=== PATIENT | female | born 1980 | race Two or more races ===

== ENCOUNTER 2020-07-13 14:11 | Inpatient (IN) | payer OTHER ==
[~2020-07-13] VITALS: Ht 160 cm; Wt 57.2 kg
[2020-07-13] MEDS ORDERED: SODIUM CHLORIDE 0.9% 1,000 ML IV ONE (14:57)
[2020-07-13] MEDS ORDERED: ACETAMINOPHEN 325MG TABLET PO STA (14:57)
[2020-07-13 15:55] LABS: CLARITY URINE CLEAR (CLEAR); COLOR URINE YELLOW (YELLOW); KETONES URINE NEGATIVE (NEGATIVE); LEUKOCYTE ESTERASE URINE NEGATIVE (NEGATIVE); NITRITE URINE NEGATIVE (NEGATIVE); OCCULT BLOOD URINE NEGATIVE (NEGATIVE); PROTEIN URINE NEGATIVE (NEGATIVE); SPECIFIC GRAVITY URINE 1.011 (1.005-1.030); UROBILINOGEN URINE 0.2 E.U./dL (0.2-1.0)
[2020-07-13 16:24] LABS: EOSINOPHILS % 0.9 % (0.0-5.0); HEMATOCRIT. 33.4 % (36.0-48.0); HEMOGLOBIN. 11.2 g/dL (12.0-16.0); LYMPHOCYTES % 22.7 % (20.0-50.0); MEAN CORPUSCULAR HEMOGLOBIN 31.5 pg (28.0-32.0); MEAN CORPUSCULAR VOLUME 93.7 fL (81.0-99.0); MEAN PLATELET VOLUME 8.1 fl (7.4-10.4); MONOCYTES % 6.1 % (2.0-8.0); NEUTROPHILS % 69.3 % (40.0-76.0); PLATELET 222 x1000/uL (130-400); RED BLOOD CELL COUNT 3.56 mill/uL (4.2-5.4); RED CELL DISTRIBUTION WIDTH 13.2 % (11.6-14.6)
[2020-07-13] MEDS ORDERED: LEVETIRACETAM 1000MG/100ML 100 ML IV ONE (16:30)
[2020-07-13 16:31] LABS: INR 1.1; PROTHROMBIN TIME 11.7 sec (9.6-11.0)
[2020-07-13 16:32] LABS: HCG SCREEN NEGATIVE
[2020-07-13 16:34] LABS: CHLORIDE 104 mEq/L (98-107)
[2020-07-13 16:41] LABS: CREATINE KINASE 70 IU/L (26-192)
[2020-07-13 16:45] LABS: CREATINE KINASE MB FRACTION < 1.0 ng/mL (0.5-3.6)
[2020-07-13 16:47] LABS: CARBAMAZEPINE 17.3 ug/mL (4-12)
[2020-07-13] MEDS ORDERED: NA PHOS,M-B/NA PHOS,DI-BA ENEMA 118ML PR PRN (17:30)
[2020-07-13] MEDS ORDERED: DOCUSATE SODIUM 100MG CAPSULE PO PRN (17:30)
[2020-07-13] MEDS ORDERED: GUAIFENESIN 200MG/10ML SUGAR FREE UDC PO PRN (17:30)
[2020-07-13] MEDS ORDERED: ONDANSETRON HCL 4MG/2ML INJ IV PRN (17:30)
[2020-07-13] MEDS ORDERED: MAGNESIUM/ALUMINUM HYDROXIDE/SIMETHICONE 30ML UDC PO PRN (17:30)
[2020-07-13] MEDS ORDERED: LORAZEPAM 0.5MG TABLET PO PRN (17:30)
[2020-07-13] MEDS ORDERED: ACETAMINOPHEN 325MG TABLET PO PRN (17:30)
[2020-07-13] MEDS ORDERED: ACETAMINOPHEN 650MG SUPP PR PRN (17:30)
[2020-07-13] MEDS ORDERED: CLONIDINE 0.1MG TABLET PO PRN (17:30)
[2020-07-13] MEDS ORDERED: DIPHENHYDRAMINE 50MG/ML VIAL IV PRN (17:30)
[2020-07-13] MEDS ORDERED: LEVETIRACETAM 500 MG in SODIUM CHLORIDE 0.9% 100 ML IV SCH (17:30)
[2020-07-13] MEDS ORDERED: HYDROCODONE/ACETAMINOPHEN 5/325MG TABLET PO PRN (17:30)
[2020-07-13] MEDS ORDERED: MORPHINE SULFATE 2 MG/ML CPJ (NOT FOR IM USE) IV PRN (17:30)
[2020-07-13] MEDS: FAMOTIDINE 20MG/2ML VIAL IV SCH (18:17)
[2020-07-13] MEDS: DEXT 5%/0.45% NACL 1000ML 1,000 ML IV SCH (18:27)
[2020-07-13] MEDS ORDERED: CEFTRIAXONE 1 G PREMIX 50 ML IV SCH (18:30)
[2020-07-13] MEDS ORDERED: KCL 20MEQ/100ML PREMIX 100 ML IV NR (18:30)
[2020-07-13 18:31] LABS: *AMPHETAMINES SCREEN URINE NEGATIVE (NEGATIVE); *BARBITURATES SCREEN URINE NEGATIVE (NEGATIVE); *BENZODIAZEPINES SCREEN URINE NEGATIVE (NEGATIVE); *COCAINE SCREEN URINE NEGATIVE (NEGATIVE); METHADONE URINE SCREEN NEGATIVE (NEGATIVE); OPIATES URINE SCREEN NEGATIVE (NEGATIVE)
[2020-07-13 18:32] LABS: CANNABINOID URINE SCREEN NEGATIVE (NEGATIVE); PHENCYCLIDINE URINE SCREEN NEGATIVE (NEGATIVE)
[2020-07-13] MEDS ORDERED: AZITHROMYCIN 500 MG in DEXT 5% WATER 250 ML IV SCH (19:00)
[2020-07-13 19:24] LABS: BG CARBOXYHEMOGLOBIN 0.2 % (0.5-1.5); BG DEOXYHEMOGLOBIN 2.5 % (0.0-5.0); BG FRACTION INSPIRED OXYGEN 21; BG HCO3 ACT 24.7 mmol/L (22.0-26.0); BG METHEMOGLOBIN 0.2 % (0.0-1.5); BG OXYGEN SATURATION 97.5 % (92.0-98.5); BG OXYHEMOGLOBIN 97.1 % (94.0-97.0); BG PCO2 40.1 mmHg (35.0-45.0); BG PH 7.407 (7.350-7.450); BG SAMPLE SITE LEFT BRACHIAL; BG TOTAL HEMOGLOBIN 11.7 g/dL (12.0-18.0); BG VENT MODE ROOM AIR
[2020-07-13 22:00] VITALS: BP 119/63
[2020-07-13] MEDS: AZITHROMYCIN 500 MG in DEXT 5% WATER 250 ML IV SCH (23:11)
[2020-07-13] MEDS ORDERED: KEPP500 PO (23:48)
[2020-07-13] MEDS ORDERED: CARB200T6 PO (23:50)
[2020-07-13] MEDS ORDERED: LORA-250 PO (23:53)
[2020-07-14] VITALS (7 sets, daily range): BP systolic 99–144; BP diastolic 53–69
[2020-07-14 00:16] LABS: CREATINE KINASE 65 IU/L (26-192); CREATINE KINASE MB FRACTION < 1.0 ng/mL (0.5-3.6)
[2020-07-14] MEDS: LORAZEPAM 2MG/ML CPJ IV PRN ×2 (03:35→19:18)
[2020-07-14] MEDS ORDERED: LEVETIRACETAM 500MG PREMIX 100 ML IV SCH (06:00)
[2020-07-14] MEDS: LEVETIRACETAM 500MG PREMIX 100 ML IV SCH ×2 (06:35→17:55)
[2020-07-14 07:34] LABS: MEAN CORPUSCULAR HEMOGLOBIN 31.6 pg (28.0-32.0); MEAN PLATELET VOLUME 8.2 fl (7.4-10.4); MONOCYTES % 5.8 % (2.0-8.0)
[2020-07-14 07:37] LABS: EOSINOPHILS % 2.4 % (0.0-5.0); HEMATOCRIT. 33.5 % (36.0-48.0); HEMOGLOBIN. 11.3 g/dL (12.0-16.0); LYMPHOCYTES % 35.7 % (20.0-50.0); MEAN CORPUSCULAR VOLUME 93.3 fL (81.0-99.0); NEUTROPHILS % 55.1 % (40.0-76.0); PLATELET 199 x1000/uL (130-400); RED BLOOD CELL COUNT 3.59 mill/uL (4.2-5.4); RED CELL DISTRIBUTION WIDTH 13.4 % (11.6-14.6)
[2020-07-14 07:54] LABS: CHLORIDE 108 mEq/L (98-107)
[2020-07-14 08:01] LABS: LDL CHOLESTEROL 75 mg/dL (5-100)
[2020-07-14 08:03] LABS: CARBAMAZEPINE 6.4 ug/mL (4-12); CREATINE KINASE 63 IU/L (26-192); CREATINE KINASE MB FRACTION < 1.0 ng/mL (0.5-3.6); HDL CHOLESTEROL 51 mg/dL (40-59); T4 FREE 0.77 ng/dL (0.76-1.46)
[2020-07-14] MEDS: FAMOTIDINE 20MG/2ML VIAL IV SCH (08:36)
[2020-07-14] MEDS ORDERED: POTASSIUM CHLORIDE INJ 40 MEQ in DEXT 5% WATER 250 ML IV SCH (13:00)
[2020-07-14] MEDS: DEXT 5%/0.45% NACL 1000ML 1,000 ML IV SCH (14:39)
[2020-07-14] MEDS ORDERED: CEFTRIAXONE 1,000 MG in DEXTROSE 5% WATER 50 ML IV SCH (18:00)
[2020-07-14] MEDS ORDERED: LEVETIRACETAM 500MG TABLET PO SCH (21:00)
[2020-07-14] MEDS: CARBAMAZEPINE 200MG TABLET PO SCH (21:40)
[2020-07-14] MEDS: LEVETIRACETAM 500MG TABLET PO SCH (21:40)
[2020-07-14] MEDS ORDERED: AZITHROMYCIN 500 MG TABLET PO ONE (23:00)
[2020-07-14] MEDS: AZITHROMYCIN 500 MG in DEXT 5% WATER 250 ML IV SCH (23:00)
[2020-07-15] VITALS: BP 116/66
[2020-07-15 04:00] VITALS: BP 110/77
[2020-07-15 08:00] VITALS: BP 99/48
[2020-07-15] MEDS: FAMOTIDINE 20MG/2ML VIAL IV SCH (09:51)
[2020-07-15] MEDS: LEVETIRACETAM 500MG TABLET PO SCH (09:51)
[2020-07-15] MEDS: CARBAMAZEPINE 200MG TABLET PO SCH (09:51)
[2020-07-15] MEDS: DEXT 5%/0.45% NACL 1000ML 1,000 ML IV SCH (10:55)
[2020-07-15 12:00] VITALS: BP 101/60
[2020-07-15] MEDS ORDERED: LEVE750T4 MT (12:57)
[2020-07-15] MEDS ORDERED: CARB200T6 PO (13:07)
[2020-07-15 15:01] VITALS: BP 101/60
[2020-07-15 16:00] VITALS: BP 105/57
== END 2020-07-15 16:38 | disposition home or self-care (01) | DRG 918 ==
LOC: ER 14:11 → 7WST 16:40 → EDBEDREQ 16:53 → ENRESERV 19:21 → 5WST 07-14 17:07
PROVIDERS: ADMIT Internal Medicine; ATTEND Internal Medicine
PROC: 4A00X4Z Measurement of Central Nervous Electrical Activity, External Approach (ICD-10-PCS; principal; 2020-07-15)
DX: T42.1X1A Poisoning by iminostilbenes, accidental (unintentional), initial encounter (principal); N39.0 Urinary tract infection, site not specified; G40.909 Epilepsy, unspecified, not intractable, without status epilepticus; D64.9 Anemia, unspecified; Z20.828 Contact with and (suspected) exposure to other viral communicable diseases; E83.51 Hypocalcemia; F41.9 Anxiety disorder, unspecified; Z79.899 Other long term (current) drug therapy; Z71.3 Dietary counseling and surveillance; Y92.89 Other specified places as the place of occurrence of the external cause
CPT/HCPCS: 36415; 36600; 70551; 71045; 72100; 74176; 80053; 80061; 80156; 80305; 81003; 82375; 82542; 82550; 82553; 82805; 83605; 83615; 83735; 83880; 84145; 84439; 84443; 84484; 84703; 85025; 85379; 86850; 86900; 87635; 93005; 99291; J0456; J0696; J1953; J2060; J2270; J2405; J3480; J3490; J7030; J7060